=== PATIENT | male | born 1950 | race Caucasian/White ===

== ENCOUNTER → 2017-03-02 | Outpatient (REF) ==
--- NOTE | 2017-03-02 12:04 | Diagnostic Imaging Report ---
INDICATION: Routine physical exam. TIME OF EXAM: 12:16 PM No prior studies are available for comparison. FINDINGS: The heart size is normal. The lungs are clear. No pleural effusion or pneumothorax is identified. The pulmonary vascularity is normal. IMPRESSION: No acute abnormality detected. Dictated by: Dictated on workstation # [id number]
== END | disposition home or self-care (01) ==
LOC: OCC 11:41
PROVIDERS: ATTEND Nurse Practitioner Family
CPT/HCPCS: 71045

== ENCOUNTER → 2020-07-28 | Outpatient (REF) ==
--- NOTE | 2020-07-28 11:25 | Diagnostic Imaging Report ---
INDICATION: Medical surveillance for Beryllium. COMPARISON: 03/02/2017 FINDINGS: Single frontal view of the chest demonstrates normal heart size and pulmonary vascularity. The lungs are well aerated and clear. No large pleural effusion or pneumothorax is seen. The visualized osseous structures show no acute abnormalities. IMPRESSION: 1. No acute cardiopulmonary process. Dictated by: Dictated on workstation # [id number]
== END ==
LOC: OCC 11:07
PROVIDERS: ATTEND Nurse Practitioner Family
DX: Z13.83 Encounter for screening for respiratory disorder NEC (principal)
CPT/HCPCS: 71045